=== PATIENT | male | born 1995 | race Caucasian/White ===

== ENCOUNTER 2018-03-21 15:48 | Emergency (ER) | payer SELFPAY | END 2018-03-21 16:44 | disposition home or self-care (01) | LOC: ERS 15:48 | DX: R11.0 Nausea (principal); F41.9 Anxiety disorder, unspecified; F32.9 Major depressive disorder, single episode, unspecified; F17.210 Nicotine dependence, cigarettes, uncomplicated | CPT/HCPCS: 99283 ==

== ENCOUNTER 2018-04-29 17:16 | Emergency (ER) | payer SELFPAY ==
--- NOTE | 2018-04-29 18:11 | RAD ---
THREE VIEWS OF THE RIGHT HAND: 04/29/18 INDICATION: Right knuckle swelling and redness. IMPRESSION: No acute fracture or subluxation is evident. No radiopaque foreign body is noted. There is soft tissu e swelling of the dorsal aspect of the right hand. POS: [facility]
== END 2018-04-29 21:09 | disposition home or self-care (01) ==
LOC: ERS 17:16
DX: L03.113 Cellulitis of right upper limb (principal); F41.9 Anxiety disorder, unspecified; F32.9 Major depressive disorder, single episode, unspecified; F17.290 Nicotine dependence, other tobacco product, uncomplicated

== ENCOUNTER 2018-08-06 16:40 | Emergency (ER) | payer SELFPAY ==
[2018-08-06] MEDS ORDERED: AMOXicillin 250 MG CAP ONE (17:01)
[2018-08-06] MEDS ORDERED: Acetaminophen 325 MG TAB ONE (17:01)
[2018-08-06] MEDS ORDERED: Ibuprofen 800 MG TAB ONE (17:01)
== END 2018-08-06 17:06 | disposition home or self-care (01) ==
LOC: ERS 16:40
DX: J02.0 Streptococcal pharyngitis (principal); F41.9 Anxiety disorder, unspecified; F32.9 Major depressive disorder, single episode, unspecified; Z87.891 Personal history of nicotine dependence
CPT/HCPCS: 99283

== ENCOUNTER 2022-05-26 02:55 | Emergency (ER) | payer SELFPAY | END 2022-05-26 07:06 | disposition home or self-care (01) | LOC: ERS 02:55 | DX: S09.90XA Unspecified injury of head, initial encounter (principal); S01.112A Laceration without foreign body of left eyelid and periocular area, initial encounter; S00.81XA Abrasion of other part of head, initial encounter; F10.129 Alcohol abuse with intoxication, unspecified; Z87.891 Personal history of nicotine dependence; W18.39XA Other fall on same level, initial encounter | CPT/HCPCS: 70450; 70486; 72125 ==

== ENCOUNTER 2022-06-18 12:56 | Emergency (ER) | payer SELFPAY | END 2022-06-18 13:58 | disposition home or self-care (01) | LOC: ERS 12:56 | DX: R19.7 Diarrhea, unspecified (principal); F17.290 Nicotine dependence, other tobacco product, uncomplicated | CPT/HCPCS: 99283 ==

== ENCOUNTER 2022-09-07 12:25 | Emergency (ER) | payer SELFPAY | END 2022-09-07 12:48 | disposition home or self-care (01) | LOC: ERS 12:25 | DX: J02.9 Acute pharyngitis, unspecified (principal); J06.9 Acute upper respiratory infection, unspecified; Z87.891 Personal history of nicotine dependence | CPT/HCPCS: 99283 ==

== ENCOUNTER 2022-11-18 17:58 | Emergency (ER) | payer SELFPAY | END 2022-11-18 18:05 | disposition left against medical advice (07) | LOC: ERS 17:58 | DX: Z53.21 Procedure and treatment not carried out due to patient leaving prior to being seen by health care provider (principal) ==

== ENCOUNTER 2022-12-15 19:55 | Emergency (ER) | payer SELFPAY | END 2022-12-15 21:00 | disposition home or self-care (01) | LOC: ERS 19:55 | DX: H53.8 Other visual disturbances (principal) | CPT/HCPCS: 99283 ==

== ENCOUNTER 2023-08-15 21:49 | Emergency (ER) | payer SELFPAY ==
[2023-08-15 22:33] LABS: #Basophils 0.1 thou/uL (0.0-0.2); #Eosinphils 0.1 thou/uL (0.0-0.7); #Neutrophils 8.2 thou/uL (1.40-6.50); %Basophils 0.7 % (0.0-1.0); %Eosinophils 0.6 % (0.0-10.0); %Lymphocytes 22.4 % (21.0-51.0); %Monocytes 8.5 % (0.0-10.0); Hematocrit 47.6 % (42.0-52.0); Hemoglobin 15.7 g/dL (14.0-18.0); Platelet Count 300 10x3/uL (130-400); RBC Distribution Width 13.3 % (11.5-14.5); Red Blood Cell (RBC) Count 5.23 mill/uL (4.70-6.10); White Blood Cell (WBC) Count 12.3 10x3/uL (4.8-10.8)
[2023-08-15 22:56] LABS: ALT (SGPT) 22 U/L (8-55); AST (SGOT) 26 U/L (5-34); Albumin 4.7 g/dL (3.5-5.0); Alkaline Phosphatase 48 U/L (40-110); Anion Gap 14 mmol/L (10-20); BUN (Urea Nitrogen) 21 mg/dL (8.9-20.6); Bilirubin, Total 0.2 mg/dL (0.2-1.2); Calc. Creatinine Clearance 0 mL/min (70-130); Carbon Dioxide 24 mmol/L (22-29); Chloride 103 mmol/L (98-107); Estimated GFR 103; Globulin 2.4 g/dL (2.4-3.5); Glucose 103 mg/dL (70-105); Lipase 29 U/L (8-78); Potassium 4.2 mmol/L (3.5-5.1); Protein, Total 7.1 g/dL (6.0-8.3); Sodium 137 mmol/L (136-145)
[2023-08-15 23:59] LABS: Troponin I 0.012 ng/mL (< 0.028)
== END 2023-08-16 00:19 | disposition home or self-care (01) ==
LOC: ERS 21:49
DX: R07.9 Chest pain, unspecified (principal)
CPT/HCPCS: 36415; 71045; 80053; 83690; 84484; 85025; 85379; 93005

== ENCOUNTER 2025-05-23 10:22 | Emergency (ER) | payer SELFPAY | END 2025-05-23 11:31 | disposition home or self-care (01) | LOC: ERS 10:22 | DX: F14.13 Cocaine abuse, unspecified with withdrawal (principal); F10.10 Alcohol abuse, uncomplicated; F17.290 Nicotine dependence, other tobacco product, uncomplicated | CPT/HCPCS: 93005; 99284 ==

== ENCOUNTER 2025-06-08 05:09 | Emergency (ER) | payer SELFPAY ==
[2025-06-08] MEDS ORDERED: Ketorolac Tromethamine 30 MG (1 mL) VIAL ONE (06:04)
[2025-06-08] MEDS ORDERED: Dexamethasone 4 MG TAB ONE (06:04)
== END 2025-06-08 07:10 | disposition home or self-care (01) ==
LOC: ERS 05:09
DX: R51.9 Headache, unspecified (principal); F17.290 Nicotine dependence, other tobacco product, uncomplicated
CPT/HCPCS: 96374; J1885; J8540

== ENCOUNTER 2025-07-01 15:04 | Emergency (ER) | payer SELFPAY | END 2025-07-01 15:55 | disposition home or self-care (01) | LOC: ERS 15:04 | DX: S60.222A Contusion of left hand, initial encounter (principal); S60.221A Contusion of right hand, initial encounter; F10.90 Alcohol use, unspecified, uncomplicated; F17.290 Nicotine dependence, other tobacco product, uncomplicated; W22.8XXA Striking against or struck by other objects, initial encounter; Y90.9 Presence of alcohol in blood, level not specified | CPT/HCPCS: 99282 ==